=== PATIENT | female | born 1960 | race Caucasian/White ===

== ENCOUNTER 2017-11-14 13:48 | Outpatient (REF) | payer MEDICARE, MEDICAID, SELFPAY ==
[2017-11-14 13:25] LABS: ALT 29 U/L (12-78); AST 24 U/L (15-37); Albumin 3.7 g/dL (3.4-5.0); Alkaline Phosphatase 83 U/L (46-116); Anion Gap 8.2 mmol/L (3-11); BUN 20 mg/dL (7-18); Bilirubin, Total 1.2 mg/dL (0.2-1.0); CO2 30.8 mmol/L (21.0-32.0); CREATININE 1.13 mg/dL (0.55-1.02); Calcium 8.9 mg/dL (8.5-10.1); Chloride 105 mmol/L (98-107); Cholesterol 140 mg/dL (50-200); Estimated GFR 49.81 (mL/min/1.73m2); Glucose 84 mg/dL (70-100); HDL Cholesterol 52 mg/dL (40-60); LDL CHOLESTEROL 74 mg/dL (<100); Potassium 4.3 mmol/L (3.5-5.1); Sodium 144 mmol/L (136-145); TSH (W/Ref FT4) 2.28 uIU/mL (0.358-3.74); Total Protein 6.9 g/dL (6.4-8.2); Triglyceride 129 mg/dL (30-150)
== END 2017-11-14 14:08 ==
LOC: NCHCN 13:48
PROVIDERS: PCP Nurse Practitioner; Visit Provider Nurse Practitioner
DX: E03.9 Hypothyroidism, unspecified (principal); N28.9 Disorder of kidney and ureter, unspecified; I10 Essential (primary) hypertension; E78.5 Hyperlipidemia, unspecified
CPT/HCPCS: 80053; 80061; 83721; 84443

== ENCOUNTER 2018-08-17 02:00 | Outpatient (CLI) | payer MEDICARE, MEDICAID, SELFPAY ==
--- NOTE | 2018-08-17 08:23 | DI.RAD_ITS ---
SYMPTOM/DIAGNOSIS; RIGHT KNEE PAIN, M25.561 RIGHT KNEE: Four views. Comparison 03/02/10 There are again seen post surgical changes of a right total knee replacement. No evidence of hardware failure is seen. The bones are intact. There is a small joint effusion. Enthesophytes are seen at the patella. IMPRESSION: Stable right TKR
== END 2018-08-17 02:20 ==
PROVIDERS: PCP Nurse Practitioner; Visit Provider Nurse Practitioner
DX: M25.561 Pain in right knee (principal); Z96.651 Presence of right artificial knee joint
CPT/HCPCS: 73562

== ENCOUNTER 2018-09-07 01:29 | Outpatient (CLI) | payer MEDICARE, MEDICAID, SELFPAY ==
--- NOTE | 2018-09-07 13:16 | DI.MAMMO_ITS ---
SYMPTOM/DIAGNOSIS: SCREENING, Z12.39 MAMMOGRAMS: Mammograms were interpreted according to the usual protocol including computer analysis with CAD system, tomosynthesis and C view imaging. The breasts are of moderate density with fairly symmetrical distribution of fibroglandular tissue. No dominant mass or clumped microcalcification is identified in either breast. The current examination is compared with previous examinations including 12/2015 and there has been no gross interval change in appearance in comparison with the previous studies. CONCLUSION: No specific evidence of malignancy at this time. Routine screening examinations are suggested at yearly intervals due to the family history of breast carcinoma. Category 1. Breast density, category B. MQSA ASSESSMENT OF FINDINGS: Negative. Category 1. Patient will receive a letter notifying them of these results. BI-RADS category B. There are scattered areas of fibroglandular density.
== END 2018-09-07 01:49 ==
PROVIDERS: PCP Nurse Practitioner; Visit Provider Nurse Practitioner
DX: Z12.31 Encounter for screening mammogram for malignant neoplasm of breast (principal); Z80.3 Family history of malignant neoplasm of breast
CPT/HCPCS: 77063; 77067

== ENCOUNTER 2018-10-02 11:29 | Outpatient (CLI) | payer MEDICARE, MEDICAID, SELFPAY ==
--- NOTE | 2018-10-02 11:30 | NS.NUTBLAN_ITS ---
DESCRIPTION: Karen Fonseca presents for consult for her first nutrition visit in preparation for bariatric surgery. She describes times when she lost 100# in 3 months because she stopped eating but has always gained the weight back.Highest weight 412. Currently she eats a lot of salads; piece of cake 1 time a month. She has been freezing grapes as a treat. She has ham cheese sandwich for lunch and salad for second meal. She may snack on granola bar in evening. Karen states she rides stationary bike 20-30 minutes daily and uses her valdez 3-4 times a week although she has knee trouble from replacements. Weight today: 396 Height: 69 BMI: 58 NUTRITIONAL DIAGNOSIS: INTERVENTION: Discussed sustainability of her current food plan and she is confident she can continue this. Discussed approaches to achieve some of the requirements of foods for surgery. Discussed documenting her food. PLAN: Karen will maintain her current food and exercise plan. She will begin documenting her food on the food log. Will monitor weight and progress toward meeting requirements in 1 month
== END 2018-10-02 11:49 ==
PROVIDERS: PCP Nurse Practitioner; Visit Provider Dietitian, Registered
DX: E66.01 Morbid (severe) obesity due to excess calories (principal); Z68.43 Body mass index [BMI] 50.0-59.9, adult; Z01.818 Encounter for other preprocedural examination; Z71.3 Dietary counseling and surveillance
CPT/HCPCS: 97802

== ENCOUNTER 2018-10-23 15:15 | Outpatient (REF) | payer MEDICARE, MEDICAID, SELFPAY ==
--- NOTE | 2018-10-23 13:15 | PAPFT_PTH ---
PATIENT: Karen Fonseca LOC: [facility] U#:[id number] AGE/SX: 58/F ROOM: RE10/23/[address]: GILA Moya : 1960 BED: DIS: 10/23/2018 SPEC #: [id number] RECD: 10/23/18 17:47 STATUS: JOANIE REDebra #: [id number] CHELSY: 10/23/18 13:[address]: Josey Monroe DEPT: [facility] Cytology RECD BY: Clau Silva ENTERED: 10/23/18 17:48 SP TYPE: PAPFT OTHR DR: Osiris Mckeon Tissues: 1 - CX/ENDOCX FOR PAP SMEARS Procedures: PAP THIN PREP/UVM Screening HPV DNA PROBE Comments: [id number]
== END 2018-10-23 15:35 ==
LOC: LBN 15:15
PROVIDERS: PCP Nurse Practitioner; Visit Provider Nurse Practitioner Family
DX: Z12.4 Encounter for screening for malignant neoplasm of cervix (principal); Z11.51 Encounter for screening for human papillomavirus (HPV); R87.610 Atypical squamous cells of undetermined significance on cytologic smear of cervix (ASC-US)
CPT/HCPCS: 88142; 87624

== ENCOUNTER 2018-10-30 09:05 | Outpatient (CLI) | payer MEDICARE, MEDICAID, SELFPAY ==
--- NOTE | 2018-10-30 12:00 | NS.NUTBLAN_ITS ---
DESCRIPTION: Karen Fonseca presents for consult for her second nutrition visit in preparation for bariatric surgery. Karen continues to eat in a similar way as last month. She reports she barely eats, but continues to gain weight. She has oatmeal with maple syrup for breakfast, 1% milk; lunch is cottage cheese with fruit and snacks on frozen grapes; supper is sandwich and salad. SHe states she has tracked her calories in the past at around 1300kcal/day. She is currently taking a multivitamin. She drinks 1-2 carbonated beverages per week. Karen uses her exercise bike 20minutes daily and the gazelle 2-3 times per week. Karen reports she is going for her sleep study tonight. WEIGHT TODAY: 404.9 HEIGHT: 69 BMI: 59.8 INTERVENTION: Discussed causes of her recent weight gain and she states if she eats anything at all she gains weight. Discussed going off carbonated beverages and she states she will work on this. She does not feel there is anything she could do differently except not eat. PLAN: She will attempt to give up carbonated beverages She will continue her current food and physical activity plan
== END 2018-10-30 09:25 ==
PROVIDERS: PCP Nurse Practitioner; Visit Provider Dietitian, Registered
DX: E66.2 Morbid (severe) obesity with alveolar hypoventilation (principal); Z68.43 Body mass index [BMI] 50.0-59.9, adult; Z71.3 Dietary counseling and surveillance
CPT/HCPCS: 97802

== ENCOUNTER 2018-11-14 16:04 | Outpatient (REF) | payer MEDICARE, MEDICAID, SELFPAY ==
--- NOTE | 2018-11-14 15:40 | CER_PTH ---
PATIENT: Karen Fonseca LOC: [facility] U#:[id number] AGE/SX: 58/F ROOM: RE11/14/[address]: Caroline West MD : 1960 BED: DIS: 11/14/2018 SPEC #: [id number] RECD: 11/14/18 17:22 STATUS: JOANIE RE #: [id number] CHELSY: 11/14/18 15:[address]: Caroline West DEPT: Surgical Specimen RECD BY: Clau Silva ENTERED: 11/14/18 17:23 SP TYPE: CER OTHR DR: Osiris Mckeon Tissues: 1 - CERVICAL BIOPSY 2 - ENDOCERVICAL BX/CURRETTE Procedures: GROSS AND MICRO LEVEL 4 Comments: [id number]
== END 2018-11-14 16:24 ==
LOC: LBN 16:04
PROVIDERS: PCP Nurse Practitioner; Visit Provider Obstetrics & Gynecology
DX: N88.8 Other specified noninflammatory disorders of cervix uteri (principal); R87.610 Atypical squamous cells of undetermined significance on cytologic smear of cervix (ASC-US); R87.810 Cervical high risk human papillomavirus (HPV) DNA test positive
CPT/HCPCS: 88305

== ENCOUNTER 2018-11-15 19:47 | Outpatient (REF) | payer MEDICARE, MEDICAID, SELFPAY ==
[2018-11-15 19:09] LABS: Abs Immature Grans 0.02 k/cumm (0.0-0.09); Absolute Basophil Count 0.02 k/cumm (0.0-0.2); Absolute Eosinophil Count 0.17 k/cumm (0.0-0.7); Absolute Lymphocyte Count 1.87 k/cumm (1.2-3.4); Absolute Neutrophil Count 5.85 k/cumm (1.2-6.7); Basophils % 0.2; Eosinophils % 1.9; HCT 41.8 % (36.0-46.0); HGB 13.6 g/dL (12.0-15.5); Immature Grans % 0.2; Lymphocytes % 21.4; Mean Corp. HGB Concentration 32.5 g/dL (32.0-36.0); Mean Corpuscular Hemoglobin 30.2 pg (27.0-33.0); Mean Corpuscular Volume 92.9 fL (80-95); Mean Platelet Volume 10.6 fL (8.0-11.0); Monocytes % 9.2; Neutrophils % 67.1; Platelet Count 262 x1000/uL (130-400); RBC Distribution Width 14.3 % (11.7-14.6); White Blood Cell Count 8.73 k/cumm (4.4-10.8)
[2018-11-15 19:46] LABS: Hemoglobin A1C 5.7 % (4.5-6.2)
== END 2018-11-15 20:07 ==
LOC: NCHCN 19:47
PROVIDERS: PCP Nurse Practitioner; Visit Provider Nurse Practitioner
DX: R73.9 Hyperglycemia, unspecified (principal); E66.9 Obesity, unspecified
CPT/HCPCS: 83036; 85025

== ENCOUNTER 2018-11-27 13:54 | Outpatient (CLI) | payer MEDICARE, MEDICAID, SELFPAY ==
--- NOTE | 2018-11-27 13:30 | NS.NUTBLAN_ITS ---
DESCRIPTION: Karen Fonseca presents for nutrition consult for her 3rd bariatric surgery visit. Weight: 393.4 Height: 69 BMI: 58.1 Karen reports changes in her food to add hot pepper jelly on crackers (4 jars in last week); chips and ham and cheese or vegetable sandwiches at times after having primarily eating vegetables and protein in an attempt to lose weight, and this has surprisingly resulted in weight loss. SHe has also added 5 maple candies per day. She has 1 soda a week; no coffee. She is taking multivitamins. Karen continues to use her bike 20 minutes daily. Karen completed her sleep study with self-reported 'severe' sleep apnea however she feels she slept poorly trying the mask for the first time last night. INTERVENTION: Discussed unexpected weight change from adding sugar and grains to her current meal plan. Discussed possible need for some carbohydrate for optimal metabolic processes. Reviewed portions and frequent smaller meals; beverages between meals. She is encouraged to continue using c-pap for time being. She will discuss Medicare requirements for bariatric surgery with her PCP . PLAN: Consider cutting sugar and replace with a complex whole grain carbohydrate for a few days Continue current physical activity
== END 2018-11-27 14:14 ==
PROVIDERS: PCP Nurse Practitioner; Visit Provider Dietitian, Registered
DX: E66.9 Obesity, unspecified (principal); Z71.3 Dietary counseling and surveillance

== ENCOUNTER 2019-02-28 00:27 | Outpatient (CLI) | payer MEDICARE, MEDICAID, SELFPAY ==
--- NOTE | 2019-02-28 08:53 | DI.US_ITS ---
EXAM: US ABDOMEN CLINICAL HISTORY: ELEVATED BILIRUBIN, S/P CHOLECYSTECTOMY, ASSESS TECHNIQUE: Ultrasound performed using standard protocol. COMPARISON: THYROID ULTRASOUND from 04/29/2015 FINDINGS: Hepatic parenchyma is echogenic with decrease through transmission consistent with hepatic steatosis. Large portions of the liver are nonvisualized. Gallbladder has been surgically removed. No biliar y dilatation seen. Pancreas poorly visualized. Limited visualization of the kidneys with no gross h ydronephrosis. Spleen grossly unremarkable. Abdominal aorta and IVC are of normal diameter. IMPRESSION: Technically limited study. No biliary dilatation. Hepatic steatosis noted. The patient is status post cholecystectomy.
[2019-02-28 09:32] LABS: ALT 75 U/L (14-59); AST 53 U/L (15-37); Albumin 3.8 g/dL (3.4-5.0); Alkaline Phosphatase 59 U/L (46-116); Bilirubin, Direct 0.37 mg/dL (0.00-0.20); Bilirubin, Total 2.2 mg/dL (0.2-1.0); Total Protein 6.9 g/dL (6.4-8.2)
== END 2019-02-28 00:47 ==
PROVIDERS: PCP Nurse Practitioner
DX: E80.6 Other disorders of bilirubin metabolism (principal); K76.0 Fatty (change of) liver, not elsewhere classified; Z90.49 Acquired absence of other specified parts of digestive tract
CPT/HCPCS: 36415; 80076; 76700; 85610

== ENCOUNTER 2019-05-27 07:12 | Outpatient (CLI) | payer MEDICARE, MEDICAID, SELFPAY ==
[2019-05-27 08:50] LABS: TSH 0.21 uIU/mL (0.36-3.74)
== END 2019-05-27 07:32 ==
PROVIDERS: PCP Nurse Practitioner; Visit Provider Nurse Practitioner Family
DX: E03.9 Hypothyroidism, unspecified (principal); Z98.84 Bariatric surgery status
CPT/HCPCS: 36415; 84443

== ENCOUNTER 2019-07-17 01:58 | Outpatient (CLI) | payer MEDICARE, MEDICAID, SELFPAY ==
[2019-07-17 08:27] LABS: Prothrombin Time 9.9 sec (9.3-11.0)
[2019-07-17 08:53] LABS: ALT 44 U/L (14-59); AST 29 U/L (15-37); Alkaline Phosphatase 82 U/L (46-116); Bilirubin, Direct 0.37 mg/dL (0.00-0.20); Bilirubin, Total 1.8 mg/dL (0.2-1.0); TSH (W/Ref FT4) 0.39 uIU/mL (0.36-3.74)
== END 2019-07-17 02:18 ==
PROVIDERS: PCP Nurse Practitioner; Visit Provider Surgery
DX: E80.6 Other disorders of bilirubin metabolism (principal); K76.89 Other specified diseases of liver; E03.9 Hypothyroidism, unspecified
CPT/HCPCS: 36415; 80076; 84443; 85610

== ENCOUNTER 2019-09-02 01:16 | Outpatient (CLI) | payer MEDICARE, MEDICAID, SELFPAY ==
[2019-09-02 13:38] LABS: TSH (W/Ref FT4) 0.25 uIU/mL (0.36-3.74)
== END 2019-09-02 01:36 ==
PROVIDERS: PCP Nurse Practitioner; Visit Provider Nurse Practitioner
DX: E03.9 Hypothyroidism, unspecified (principal); M10.9 Gout, unspecified
CPT/HCPCS: 36415; 80053; 80061; 82306; 85027; 82607; 82728; 82746; 83540; 84134; 84425; 84439; 84443; 84550

== ENCOUNTER → 2019-09-09 09:16 | Outpatient (BNVA) | payer MEDICARE, MEDICAID, SELFPAY | PROVIDERS: PCP Nurse Practitioner; Referring Provider Nurse Practitioner; Visit Provider Surgery | DX: Z12.11 Encounter for screening for malignant neoplasm of colon (principal); Z86.010 Personal history of colon polyps ==

== ENCOUNTER 2019-09-23 08:41 | Outpatient (CLI) | payer MEDICARE, MEDICAID, SELFPAY ==
[2019-09-25 14:53] LABS: COVID-19 RT-PCR Result NEGATIVE (Negative)
== END 2019-09-23 09:01 ==
PROVIDERS: PCP Nurse Practitioner; Visit Provider Surgery
DX: Z01.818 Encounter for other preprocedural examination (principal); T84.84XA Pain due to internal orthopedic prosthetic devices, implants and grafts, initial encounter; M25.561 Pain in right knee; Z96.651 Presence of right artificial knee joint; I10 Essential (primary) hypertension
CPT/HCPCS: 99214; U0003

== ENCOUNTER 2019-09-23 11:43 | Outpatient (CLI) | payer MEDICARE, MEDICAID, SELFPAY ==
--- NOTE | 2019-09-23 11:30 | DI.RAD_ITS ---
EXAM: XR KNEE RT 4V+ CLINICAL HISTORY: HISTORY RIGHT TKA. TECHNIQUE: 2D digital imaging was performed. COMPARISON: CR XR knee RT 3V AP,lat,juanita from 08/17/2018 FINDINGS: There are stable postsurgical changes of a right total knee arthroplasty. Bones are intact and carina lly mineralized. Enthesophytes are seen at the superior patella. The soft tissues are unremarkable. IMPRESSION: Stable right total knee arthroplasty. DATA REPOSITORY: RADIATION DOSE DELIVERED:
== END 2019-09-23 12:03 ==
PROVIDERS: PCP Nurse Practitioner; Referring Provider Nurse Practitioner; Visit Provider Student in an Organized Health Care Education/Training Program
DX: Z96.651 Presence of right artificial knee joint (principal); Z47.1 Aftercare following joint replacement surgery; T84.84XA Pain due to internal orthopedic prosthetic devices, implants and grafts, initial encounter; M25.561 Pain in right knee; I10 Essential (primary) hypertension; Z01.818 Encounter for other preprocedural examination
CPT/HCPCS: 99214; U0003; 73564

== ENCOUNTER 2019-09-25 06:10 | Day surgery (SDC) | payer MEDICARE, MEDICAID, SELFPAY ==
[2019-09-25 06:29] VITALS: BP 136/90; PULSE 67; RESP 17; TEMP 36.1; O2SAT 98
--- NOTE | 2019-09-25 06:58 | W.PM.DSUDISC ---
Discharge Plan Disposition Patient Disposition: HOME Condition: Good Discharge Details Reason For Visit: Colonoscopy Attending Provider: Taryn Zelaya Primary Care Provider: Osiris Mckeon Home Meds and New Rx's Prescriptions: Continued oxycodone-acetaminophen [Percocet] 5-325 mg tablet 1 tab PO BID PRNRF: 0 colchicine 0.6 mg capsule 0.6 mg PO TID RF: 0 levothyroxine 150 mcg capsule 150 mcg PO DAILY RF: 0 omeprazole 40 mg capsule,delayed release(DR/EC) 40 mg PO DAILY RF: 0 jzzhyqhtx-pqogwmx-tihci acid 400-200-1 mg tablet 1 tab PO DAILY RF: 0 turmeric root extract 500 mg capsule 500 mg PO DAILY RF: 0 multivitamin 1 EACH capsule 1 cap PO DAILY RF: 0 cholecalciferol (vitamin D3) [Vitamin D3] 1,000 UNIT capsule 1 cap PO DAILY RF: 0 magnesium oxide 400 MG capsule 800 mg PO DAILY RF: 0 Discharge Instructions Additional Instructions: Findings: Three small polyps were removed. My office will call with biopsy results. Diverticulosis was present. Make sure to take in 30 grams of fiber daily. Follow up: Plan for a colonoscopy in 5 years. Please call if you develop: fevers >101.5 Nausea or Vomiting Abdominal pain that is not transient DAY SURGERY UNIT POST COLONOSCOPY INSTRUCTIONS 1. Because there will be medication in your system for the next 24 hours, you may feel a little sleepy. Your coordination will be affected. Therefore: a. Do not drive or operate dangerous equipment for 24 hours. b. Do not drink alcohol beverages for 24 hours (not even beer). c. Plan to go home and rest for the day. 2. Generally there are no restrictions on your activity after a day or so has gone by, but you may feel a bit fatigued for a few days. 3 After you arrive home you may have a light meal and return to a normal diet as you can tolerate it without feeling sick to your stomach. 4. After surgery, you may feel pain or discomfort. This should be only transient, but if it persists please contact your doctor. 5. If there are any questions regarding the findings of your procedure, please feel free to contact your doctor. 6. If you are unable to contact your doctor with a problem, contact the hospital at [phone]. 7. Continue all your regular medications unless directed otherwise. I understand the above instructions and have no questions. Signature of Patient or Responsible Adult Escort Date/Time Name of Responsible Adult Escort Signature of Nurse Date/Time Activity:: Activity as Tolerated Diet:: As Tolerated Discharge Orders Discharge Orders: Discharge Order (Routine); Ordered 09/25/19 Ordered By: Taryn Zelaya DS: Diagnosis Discharge Diagnosis (1) Colon polyps: Status: Acute (2) Diverticulosis: Status: Acute
[2019-09-25] MEDS: Lactated Ringers 1,000 ML 80 ML IV (07:02)
--- NOTE | 2019-09-25 07:37 | BOWEL_PTH ---
PATIENT: Karen Fonseca LOC: [facility] U#:[id number] AGE/SX: 59/F ROOM: RE09/25/[address]: Taryn Zelaya MD : 1960 BED: DIS: 09/25/2019 SPEC #: [id number] RECD: 09/25/19 12:05 STATUS: JOANIE RE #: [id number] CHELSY: 09/25/19 07:[address]: Taryn Zelaya DEPT: Surgical Specimen RECD BY: Clau Silva ENTERED: 09/25/19 12:07 SP TYPE: Bowel OTHR DR: Osiris Mckeon Tissues: 1 - BIOPSY BOWEL 2 - BIOPSY BOWEL Procedures: GROSS AND MICRO LEVEL 4 Comments: [id number]
--- NOTE | 2019-09-25 08:14 | W.COLOREPORT ---
Date of service: 09/25/19 Time of Service: 08:14 Colonoscopy Report Date of procedure: 09/25/19 Pre-op diagnosis general: History of polyps Post-op diagnosis procedure note: other (Colon polyps, diverticulosis) Procedure: Colonoscopy with cold forceps polypectomy Surgeon: Taryn Zelaya Anesthesia proc note operative: MAC Indications: This patient presents for routine colonoscopy. She had polyps in 2012. No symptoms or FH Procedure Description: The patient was placed in the left Oneil position. Propofol was titrated to sedation. Digital rectal examination revealed no abnormalities. The scope was advanced to the cecum without difficulty. The ileocecal valve and appendiceal orifice were clearly identified. The prep was good. The scope was slowly withdrawn with two diminuitive polyps in the ascending colon removed with the cold forceps and sent to pathology in the same container. A diminuitive polyp was remove from the transverse colon. The descending, sigmoid colon and rectum were normal including on retroflexed view with the exception of some moderate sigmoid diverticulosis. The patient tolerated the procedure well and was stable to recovery. Plan for colonoscopy in 5 years or sooner if symptoms indicate.
[2019-09-25 08:30] VITALS: BP 120/70; PULSE 53; RESP 16; TEMP 35.6; O2SAT 100
== END 2019-09-25 09:00 | disposition home or self-care (01) ==
PROVIDERS: PCP Nurse Practitioner; Visit Provider Surgery
PROC: 0DJD8ZZ Inspection of Lower Intestinal Tract, Via Natural or Artificial Opening Endoscopic (ICD-10-PCS; CPT 45378; principal; 2019-09-25 07:30)
DX: Z12.11 Encounter for screening for malignant neoplasm of colon (principal); Z86.010 Personal history of colon polyps; D12.3 Benign neoplasm of transverse colon; D12.2 Benign neoplasm of ascending colon; K57.30 Diverticulosis of large intestine without perforation or abscess without bleeding
CPT/HCPCS: 45380; 88305

== ENCOUNTER 2019-09-26 01:20 | Outpatient (CLI) | payer MEDICARE, MEDICAID, SELFPAY ==
--- NOTE | 2019-09-26 06:30 | DI.NM_ITS ---
EXAM: NM BONE SCAN 3 PHASE CLINICAL HISTORY: Painful R TKA - medial tibia,t84.84xa,z96.651,. EXAMINATION: Three phase bone scan was performed with 3 phase imaging the knees and delayed whole luis manuel dy imaging following injection of 26 millicuries of technetium 99 labeled diphosphonate. There are b ilateral knee joint replacements in position. Flow images, immediate images, and delayed images are unremarkable with only minimally increased uptake typical for post TKR appearance associated with all joint components. Whole body imaging is unremarkable except for multiple areas of increased uptake in the feet, right g reater than left, consistent with typical pattern of degenerative change. FINDINGS: Bilateral total knee replacements, no focal increased uptake to suggest loosening or infection. IMPRESSION:
== END 2019-09-26 01:40 ==
PROVIDERS: PCP Nurse Practitioner; Visit Provider Student in an Organized Health Care Education/Training Program
DX: T84.84XA Pain due to internal orthopedic prosthetic devices, implants and grafts, initial encounter (principal); Z96.653 Presence of artificial knee joint, bilateral; M25.561 Pain in right knee
CPT/HCPCS: 78315

== ENCOUNTER 2019-09-26 02:45 | Outpatient (CLI) | payer MEDICARE, MEDICAID, SELFPAY ==
[2019-09-26 12:49] LABS: HCT 38.3 % (36.0-46.0); HGB 12.8 g/dL (12.0-15.5); Mean Corp. HGB Concentration 33.4 g/dL (32.0-36.0); Mean Corpuscular Hemoglobin 30.2 pg (27.0-33.0); Mean Corpuscular Volume 90.3 fL (80-95); Mean Platelet Volume 10.2 fL (8.0-11.0); Platelet Count 205 x1000/uL (130-400); RBC 4.24 m/cumm (4.00-5.20); White Blood Cell Count 6.36 k/cumm (4.4-10.8)
[2019-09-26 13:26] LABS: Iron 47 ug/dL (50-170)
[2019-09-26 13:30] LABS: ESR 33 mm/hr (0-30)
[2019-09-26 13:31] LABS: C-Reactive Protein 0.67 mg/dL (0.0-0.3)
[2019-09-26 13:54] LABS: ALT 28 U/L (14-59); AST 19 U/L (15-37); Albumin 3.9 g/dL (3.4-5.0); Alkaline Phosphatase 86 U/L (46-116); Anion Gap 9.3 mmol/L (3-11); BUN 12 mg/dL (7-18); Bilirubin, Total 2.4 mg/dL (0.2-1.0); CO2 27.7 mmol/L (21.0-32.0); CREATININE 1.01 mg/dL (0.55-1.02); Calcium 9.2 mg/dL (8.5-10.1); Calculated LDL 62 mg/dL (<100); Chloride 106 mmol/L (98-107); Cholesterol 131 mg/dL (<200); Ferritin 99 ng/mL (8-252); Glucose 89 mg/dL (74-106); HDL Cholesterol 47 mg/dL (40-60); Potassium 3.7 mmol/L (3.5-5.1); Sodium 143 mmol/L (136-145); Total Protein 6.8 g/dL (6.4-8.2); Triglyceride 110 mg/dL (<150); Vitamin B12 710 pg/mL (193-986)
[2019-09-26 13:58] LABS: Folate > 20.0 ng/mL (8.6-20.0)
[2019-09-26 14:06] LABS: Vitamin D 25 Total 38.5 ng/ml (30-100)
[2019-09-26 14:08] LABS: Uric Acid 7.3 mg/dL (2.6-6.0)
[2019-09-27 10:27] LABS: Prealbumin 22 mg/dL (20-40)
[2019-10-01 14:03] LABS: Thiamine (Vitamin B1), WB 181 nmol/L (70-180)
== END 2019-09-26 03:05 ==
PROVIDERS: PCP Nurse Practitioner; Visit Provider Student in an Organized Health Care Education/Training Program
DX: E83.10 Disorder of iron metabolism, unspecified (principal); I10 Essential (primary) hypertension; E55.9 Vitamin D deficiency, unspecified; K91.2 Postsurgical malabsorption, not elsewhere classified; E03.9 Hypothyroidism, unspecified; R94.5 Abnormal results of liver function studies; E78.5 Hyperlipidemia, unspecified; M10.9 Gout, unspecified; M25.561 Pain in right knee; T84.84XA Pain due to internal orthopedic prosthetic devices, implants and grafts, initial encounter; Z96.651 Presence of right artificial knee joint
CPT/HCPCS: 36415; 80053; 80061; 82306; 85027; 85652; 78315; 82607; 82728; 82746; 83540; 84134; 84425; 84550; 86140

== ENCOUNTER → 2019-10-21 08:42 | Outpatient (BNVA) | payer MEDICARE, MEDICAID, SELFPAY | PROVIDERS: PCP Nurse Practitioner; Referring Provider Nurse Practitioner; Visit Provider Student in an Organized Health Care Education/Training Program | DX: M25.561 Pain in right knee; T84.84XA Pain due to internal orthopedic prosthetic devices, implants and grafts, initial encounter; Z96.651 Presence of right artificial knee joint | CPT/HCPCS: 99213 ==

== ENCOUNTER 2019-12-02 10:00 | Outpatient (REF) | payer MEDICARE, MEDICAID, SELFPAY ==
[2019-12-02 20:16] LABS: FREE T4 0.95 ng/dL (0.76-1.46)
== END 2019-12-02 10:20 ==
LOC: NCHCN 10:00
PROVIDERS: PCP Nurse Practitioner; Visit Provider Nurse Practitioner
DX: E03.9 Hypothyroidism, unspecified (principal)
CPT/HCPCS: 84439; 84443

== ENCOUNTER 2020-06-08 15:54 | Outpatient (REF) | payer MEDICARE, MEDICAID, SELFPAY ==
[2020-06-08 16:04] LABS: TSH (W/Ref FT4) 9.26 uIU/mL (0.36-3.74)
[2020-06-08 16:39] LABS: FREE T4 0.83 ng/dL (0.76-1.46)
== END 2020-06-08 15:55 | disposition home or self-care (01) ==
LOC: NCHCN 15:54
PROVIDERS: PCP Nurse Practitioner; Visit Provider Nurse Practitioner
DX: E03.9 Hypothyroidism, unspecified (principal)
CPT/HCPCS: 84439; 84443

== ENCOUNTER 2020-06-16 01:07 | Outpatient (CLI) | payer MEDICARE, MEDICAID, SELFPAY ==
--- NOTE | 2020-06-16 | DI.MAMMO_ITS ---
EXAM: MAMMO SCREENING CLINICAL HISTORY: SCREENING, Z12.39 TECHNIQUE: Mammograms were interpreted according to the usual protocol including computer analysis w [employer] CAD system, tomosynthesis and C-view imaging. COMPARISON: FINDINGS: The breasts are of moderate density with fairly symmetrical distribution of fibroglandular tissue. N o dominant mass or clumped microcalcification is identified in either breast. Current examination is compared with previous examinations including August 2018 and there is increased prominence of focal i rregular area of increased radiodensity projected in the central superior portion of left breast on M LO view. Additional mammographic views of this area are requested to include an MLO spot compression view of the left breast. No other significant change from prior studies. IMPRESSION: Additional mammographic views of left breast are requested as described above. Breast ultrasound may be indicated as well depending on the results of the additional mammographic views. BI-RADS Category 0 - Assessment Incomplete: Need additional imaging evaluation Breast Density - Category B - Scattered areas of fibroglandular density
== END 2020-06-16 01:27 ==
PROVIDERS: PCP Nurse Practitioner; Visit Provider Nurse Practitioner
DX: Z12.31 Encounter for screening mammogram for malignant neoplasm of breast (principal); R92.8 Other abnormal and inconclusive findings on diagnostic imaging of breast
CPT/HCPCS: 77063; 77067

== ENCOUNTER 2020-06-16 11:05 | Outpatient (REF) | payer MEDICARE, MEDICAID, SELFPAY ==
--- NOTE | 2020-06-16 10:45 | PAPFT_PTH ---
PATIENT: Karen Fonseca LOC: [facility] U#:[id number] AGE/SX: 59/F ROOM: RE06/16/[address]: GILA Moya : 1960 BED: DIS: 06/16/2020 SPEC #: [id number] RECD: 06/16/20 12:53 STATUS: GEMMAAra REQ #: [id number] CHELSY: 06/16/20 10:[address]: Josey Monroe DEPT: REPLACED BY [facility] Cytology RECD BY: Clau Silva ENTERED: 06/16/20 12:54 SP TYPE: PAPFT OTHR DR: Osiris Mckeon Tissues: 1 - CX/ENDOCX FOR PAP SMEARS Procedures: PAP THIN PREP/UVM Screening HPV DNA PROBE Comments: [id number]
== END 2020-06-16 11:06 | disposition home or self-care (01) ==
LOC: LBN 11:05
PROVIDERS: PCP Nurse Practitioner; Visit Provider Nurse Practitioner Family
DX: Z12.4 Encounter for screening for malignant neoplasm of cervix (principal); Z87.42 Personal history of other diseases of the female genital tract; Z11.51 Encounter for screening for human papillomavirus (HPV); R87.810 Cervical high risk human papillomavirus (HPV) DNA test positive
CPT/HCPCS: 88142; 87624

== ENCOUNTER 2020-06-22 02:01 | Outpatient (CLI) | payer MEDICARE, MEDICAID, SELFPAY ==
--- NOTE | 2020-06-22 | DI.MAMMO_ITS ---
EXAM: MG MAMMO SCREEN CALL BACK UNI-LEFT CLINICAL HISTORY: F/U MAMMO, INCREASED RADIODENSITY. TECHNIQUE: Unilateral spot mammographic images were obtained with 3D tomosynthesis and utilizing Zazzy puter aided detection (CAD). . Left breast Ultrasound was also performed. COMPARISON: Prior mammograms were reviewed. This additional imaging was performed due to findings described on the recent screening mammogram of June 16, 2020. FINDINGS: Additional mammographic views performed today render this area less concerning. Ultrasound performed today reveals no significant focal findings in this region. That separate repor t. IMPRESSION: No radiographic evidence of malignancy in the left breast.. Appropriate follow-up is to keep this patient yearly mammogram schedule, with earlier imaging if a se lf detected breast changes noted.. BI-RADS Category 2 - Benign Findings Breast Density - Category B - Scattered areas of fibroglandular density Breast density Category C or D implies that the patient has dense breast tissue. Dense breast tissue can make it harder to find cancer on a mammogram. Dense breast tissue is also associated with an incr eased risk of breast cancer. This information about the result of the mammogram report was provided to the patient to raise their awareness. Use this report when you speak with the patient about their risks for breast cancer, which includes their family history. At that time, you may recommend additional screening tests (Ultrasoun d or MRI) as these tests may add significant information. A negative radiographic report should not delay biopsy if a dominant or clinically suspicious mass is present. Up to ten percent of cancers are not identified on mammography. A negative report may reinforce clinical impression. Adenosis and dense breasts may obscure an underlying neoplasm. False positive reports average 6 to 10%. Patient will receive a letter notifying them of these results.
== END 2020-06-22 02:21 ==
PROVIDERS: PCP Nurse Practitioner; Visit Provider Nurse Practitioner
DX: Z12.31 Encounter for screening mammogram for malignant neoplasm of breast (principal); R92.8 Other abnormal and inconclusive findings on diagnostic imaging of breast; N64.59 Other signs and symptoms in breast
CPT/HCPCS: 76642; 77063; 77067

== ENCOUNTER 2020-07-01 16:22 | Outpatient (REF) | payer MEDICARE, MEDICAID, SELFPAY ==
[2020-07-03 11:25] LABS: COVID-19 RT-PCR UVMMC Result Positive (Negative)
== END 2020-07-01 16:23 | disposition home or self-care (01) ==
LOC: NCHCN 16:22
PROVIDERS: PCP Nurse Practitioner; Visit Provider Physician Assistant Medical
DX: Z20.822 Contact with and (suspected) exposure to COVID-19 (principal); J06.9 Acute upper respiratory infection, unspecified
CPT/HCPCS: U0003; U0005

== ENCOUNTER 2020-12-07 15:23 | Outpatient (REF) | payer MEDICARE, MEDICAID, SELFPAY ==
[2020-12-07 16:09] LABS: HCT 39.5 % (36.0-46.0); HGB 12.9 g/dL (11.2-15.7); MCH 29.6 pg (27.0-33.0); MCHC 32.7 % (32.0-36.0); MCV 90.6 fL (80-95); MPV 10.9 fL (8.0-11.0); Platelet Count 228 10^3/uL (130-400); RBC 4.36 10^6/uL (3.93-5.22); RDW 12.7 % (11.7-14.6); RDW-SD 41.5 fL; WBC 7.21 10^3/uL (4.4-10.8)
[2020-12-07 16:40] LABS: Iron 70 ug/dL (50-170); Total Iron Binding Capacity 361 ug/dL (250-450); Transferrin Sat 19 % (15-50)
[2020-12-07 17:05] LABS: Vitamin D 25 Total 33.7 ng/mL (30-100)
[2020-12-07 17:21] LABS: ALT 37 U/L (14-59); AST 24 U/L (15-37); Albumin 3.9 g/dL (3.4-5.0); Alkaline Phosphatase 100 U/L (46-116); Anion Gap 9.8 mmol/L (3-11); BUN 16 mg/dL (7-18); Bilirubin, Total 1.3 mg/dL (0.2-1.0); CO2 28.2 mmol/L (21.0-32.0); CREATININE 0.8 mg/dL (0.55-1.02); Calcium 8.9 mg/dL (8.5-10.1); Chloride 107 mmol/L (98-107); Ferritin 82 ng/mL (8-252); Glucose 86 mg/dL (74-106); Potassium 4.4 mmol/L (3.5-5.1); Sodium 145 mmol/L (136-145); TSH (W/Ref FT4) 0.41 uIU/mL (0.36-3.74); Total Protein 7.1 g/dL (6.4-8.2); Vitamin B12 681 pg/mL (193-986)
[2020-12-07 17:40] LABS: Folate > 20.0 ng/mL (8.6-20.0)
[2020-12-08 09:57] LABS: Parathyroid Hormone,Intact 125 pg/mL (19-88)
[2020-12-10 10:10] LABS: Thiamine (Vitamin B1), WB 226 nmol/L (70-180)
== END 2020-12-07 15:24 | disposition home or self-care (01) ==
LOC: NCHCN 15:23
PROVIDERS: PCP Nurse Practitioner; Visit Provider Nurse Practitioner
DX: Z98.84 Bariatric surgery status (principal); E78.5 Hyperlipidemia, unspecified; G47.33 Obstructive sleep apnea (adult) (pediatric); I10 Essential (primary) hypertension; E03.9 Hypothyroidism, unspecified
CPT/HCPCS: 80053; 82306; 85027; 82607; 82728; 82746; 83540; 83550; 83970; 84425; 84443

== ENCOUNTER 2021-06-08 11:49 | Outpatient (REF) | payer MEDICARE, MEDICAID, SELFPAY ==
--- NOTE | 2021-06-08 11:15 | PAPFT_PTH ---
PATIENT: Karen Fonseca LOC: [facility] U#:[id number] AGE/SX: 60/F ROOM: RE06/08/[address]: GILA Moya : 1960 BED: DIS: 06/08/2021 SPEC #: [id number] RECD: 06/08/21 12:48 STATUS: JOANIE REDebra #: [id number] CHELSY: 06/08/21 11:[address]: Josey Monroe DEPT: [facility] Cytology RECD BY: Clau Silva ENTERED: 06/08/21 12:49 SP TYPE: PAPFT OTHR DR: Osiris Mckeon Tissues: 1 - CX/ENDOCX FOR PAP SMEARS Procedures: PAP THIN PREP/UVM Screening HPV DNA PROBE Comments: [id number]
== END 2021-06-08 11:50 | disposition home or self-care (01) ==
LOC: LBN 11:49
PROVIDERS: PCP Nurse Practitioner; Visit Provider Nurse Practitioner Family
DX: Z12.4 Encounter for screening for malignant neoplasm of cervix (principal); Z11.51 Encounter for screening for human papillomavirus (HPV); R87.810 Cervical high risk human papillomavirus (HPV) DNA test positive; Z01.419 Encounter for gynecological examination (general) (routine) without abnormal findings
CPT/HCPCS: 88142; 87624

== ENCOUNTER 2021-06-08 17:13 | Outpatient (REF) | payer MEDICARE, MEDICAID, SELFPAY ==
[2021-06-08 16:51] LABS: HCT 40.8 % (36.0-46.0); HGB 13.2 g/dL (11.2-15.7); MCHC 32.4 % (32.0-36.0); MCV 89.7 fL (80-95); MPV 11.1 fL (8.0-11.0); Platelet Count 229 10^3/uL (130-400); RBC 4.55 10^6/uL (3.93-5.22); RDW 12.9 % (11.7-14.6); RDW-SD 41.9 fL; WBC 6.75 10^3/uL (4.4-10.8)
[2021-06-08 18:15] LABS: FREE T4 1.05 ng/dL (0.76-1.46)
== END 2021-06-08 17:14 | disposition home or self-care (01) ==
LOC: NCHCN 17:13
PROVIDERS: PCP Nurse Practitioner; Visit Provider Nurse Practitioner Family
DX: I10 Essential (primary) hypertension (principal)
CPT/HCPCS: 85027; 84439; 84443

== ENCOUNTER 2021-06-18 00:24 | Outpatient (CLI) | payer MEDICARE, MEDICAID, SELFPAY ==
--- NOTE | 2021-06-18 | DI.DEXA_ITS ---
Exam(s) XR DEXA BONE DENSITY W/WO ABDIRIZAK EXAM: XR DEXA BONE DENSITY W/WO ABDIRIZAK CLINICAL HISTORY: HX OF GASTRIC BYPASS 2020, Z98.84, HX NORMAL MENOPAUSE, Z78.0 TECHNIQUE: Routine DEXA evaluation of the lumbar spine, hip, or forearm. COMPARISON: No exams were available for comparison FINDINGS: Performed on a Hologic unit. Lateral image: No compression fracture evident. Lumbar Spine total T-score: 3.3 Hip total T-score:2.1 Independent reading at the level of the femoral neck yields at T-score of 0.3. Forearm total T-score: 1.2 IMPRESSION: Bone mineral density measures in the normal range. Fracture risk is low. Note: Any spine fracture indicates 5x risk for subsequent spine fracture and 2x risk for subsequent h ip fracture. World Health Organization criteria for BMD interpretation classify patients: Normal...... T- Score at or above -1.0 Osteopenic... T- Score between -1.0 and -2.5 Osteoporosis... T-Score at or below -2.5
== END 2021-06-18 00:44 ==
PROVIDERS: PCP Nurse Practitioner; Visit Provider Nurse Practitioner Family
DX: Z13.820 Encounter for screening for osteoporosis; Z78.0 Asymptomatic menopausal state; Z98.84 Bariatric surgery status
CPT/HCPCS: 77080

== ENCOUNTER 2021-07-09 10:41 | Outpatient (REF) | payer MEDICARE, MEDICAID, SELFPAY ==
--- NOTE | 2021-07-09 10:00 | ENDO_PTH ---
PATIENT: Karen Fonseca LOC: [facility] U#:[id number] AGE/SX: 60/F ROOM: RE07/09/[address]: Shila Henderson DO : 1960 BED: DIS: 07/09/2021 SPEC #: [id number] RECD: 07/09/21 12:44 STATUS: JOANIE REQ #: [id number] CHELSY: 07/09/21 10:[address]: Shila Henderson DEPT: Surgical Specimen RECD BY: Clau Silva ENTERED: 07/09/21 12:45 SP TYPE: Endo OTHR DR: Osiris Mckeon Tissues: 1 - ENDOCERVICAL BX/CURRETTE Procedures: GROSS AND MICRO LEVEL 4 Comments: [id number]
== END 2021-07-09 10:42 | disposition home or self-care (01) ==
LOC: LBN 10:41
PROVIDERS: PCP Nurse Practitioner; Visit Provider Obstetrics & Gynecology
DX: N88.8 Other specified noninflammatory disorders of cervix uteri (principal)
CPT/HCPCS: 88305

== ENCOUNTER 2021-12-07 13:30 | Outpatient (REF) | payer MEDICARE, MEDICAID, SELFPAY ==
[2021-12-07 15:44] LABS: Abs Immature Grans 0.03 10^3/uL (0.0-0.06); Absolute Basophil Count 0.04 10^3/uL (0.0-0.2); Absolute Eosinophil Count 0.08 10^3/uL (0.0-0.7); Absolute Lymphocyte Count 1.37 10^3/uL (1.2-3.4); Absolute Monocyte Count 0.44 10^3/uL (0.1-0.8); Absolute Neutrophil Count 5.02 10^3/uL (1.2-6.7); Basophils % 0.6; Eosinophils % 1.1; HCT 39.4 % (36.0-46.0); Immature Grans % 0.4; Lymphocytes % 19.6; MCH 29.4 pg (27.0-33.0); MCV 89 fL (80-95); MPV 11.1 fL (8.0-11.0); Monocytes % 6.3; Platelet Count 231 10^3/uL (130-400); RBC 4.42 10^6/uL (3.93-5.22); RDW 12.4 % (11.7-14.6); RDW-SD 40.3 fL; WBC 6.98 10^3/uL (4.4-10.8)
[2021-12-07 16:16] LABS: Iron 98 ug/dL (50-170); Total Iron Binding Capacity 357 ug/dL (250-450); Transferrin Sat 27 % (15-50)
[2021-12-07 16:40] LABS: ALT 27 U/L (14-59); AST 20 U/L (15-37); Albumin 3.8 g/dL (3.4-5.0); Alkaline Phosphatase 104 U/L (46-116); Anion Gap 9.5 mmol/L (3-11); BUN 20 mg/dL (7-18); Bilirubin, Total 1.2 mg/dL (0.2-1.0); CO2 27.5 mmol/L (21.0-32.0); CREATININE 0.9 mg/dL (0.55-1.02); Calcium 9.2 mg/dL (8.5-10.1); Calculated LDL 58 mg/dL (<100); Chloride 107 mmol/L (98-107); Cholesterol 141 mg/dL (<200); Estimated GFR 73.19 (mL/min/1.73m2); Ferritin 86 ng/mL (8-252); Glucose 90 mg/dL (74-106); HDL Cholesterol 58 mg/dL (40-60); Potassium 4.3 mmol/L (3.5-5.1); Sodium 144 mmol/L (136-145); TSH (W/Ref FT4) 1.46 uIU/mL (0.36-3.74); Triglyceride 129 mg/dL (<150); Vitamin B12 727 pg/mL (193-986)
[2021-12-07 16:58] LABS: Folate > 20.0 ng/mL (8.6-20.0)
[2021-12-07 17:09] LABS: Uric Acid 7.2 mg/dL (2.6-6.0)
[2021-12-08 11:27] LABS: Parathyroid Hormone,Intact 80 pg/mL (19-88)
[2021-12-09 05:47] LABS: Vitamin D 25 Total 46.7 ng/mL (30-100)
== END 2021-12-07 13:31 | disposition home or self-care (01) ==
LOC: NCHCN 13:30
PROVIDERS: PCP Nurse Practitioner; Visit Provider Nurse Practitioner Family
DX: I10 Essential (primary) hypertension (principal); Z98.84 Bariatric surgery status; E03.9 Hypothyroidism, unspecified; R73.09 Other abnormal glucose; E66.9 Obesity, unspecified; E78.5 Hyperlipidemia, unspecified; M54.59 Other low back pain; N28.9 Disorder of kidney and ureter, unspecified
CPT/HCPCS: 80053; 80061; 82306; 82607; 82728; 82746; 83540; 83550; 83970; 84443; 84550; 85025

== ENCOUNTER 2022-06-15 15:50 | Outpatient (REF) | payer MEDICARE, MEDICAID, SELFPAY ==
[2022-06-15 18:59] LABS: Hemoglobin A1C 5.2 % (<5.7)
[2022-06-15 19:11] LABS: TSH (W/Ref FT4) 2.18 uIU/mL (0.36-3.74)
== END 2022-06-15 15:51 | disposition home or self-care (01) ==
LOC: NCHCN 15:50
PROVIDERS: PCP Nurse Practitioner; Visit Provider Nurse Practitioner Family
DX: I10 Essential (primary) hypertension (principal); E03.9 Hypothyroidism, unspecified; E78.5 Hyperlipidemia, unspecified; R73.03 Prediabetes; Z98.84 Bariatric surgery status
CPT/HCPCS: 83036; 84443

== ENCOUNTER 2022-12-27 16:57 | Outpatient (REF) | payer MEDICARE, SELFPAY ==
[2022-12-27 16:56] LABS: Abs Immature Grans 0.02 10^3/uL (0.0-0.06); Absolute Basophil Count 0.03 10^3/uL (0.0-0.2); Absolute Eosinophil Count 0.09 10^3/uL (0.0-0.7); Absolute Lymphocyte Count 1.33 10^3/uL (1.2-3.4); Absolute Monocyte Count 0.51 10^3/uL (0.1-0.8); Absolute Neutrophil Count 5.63 10^3/uL (1.2-6.7); Basophils % 0.4; Eosinophils % 1.2; HCT 38.3 % (36.0-46.0); HGB 12.7 g/dL (11.2-15.7); Immature Grans % 0.3; Lymphocytes % 17.5; MCH 29.6 pg (27.0-33.0); MCHC 33.2 % (32.0-36.0); MCV 89 fL (80-95); MPV 11.1 fL (8.0-11.0); Monocytes % 6.7; Neutrophils % 73.9; Platelet Count 240 10^3/uL (130-400); RBC 4.29 10^6/uL (3.93-5.22); RDW 13.1 % (11.7-14.6); RDW-SD 42.2 fL; WBC 7.61 10^3/uL (4.4-10.8)
[2022-12-27 17:16] LABS: Hemoglobin A1C 5.3 % (<5.7)
[2022-12-27 17:39] LABS: Iron 79 ug/dL (50-170); Total Iron Binding Capacity 396 ug/dL (250-450); Transferrin Sat 20 % (15-50)
[2022-12-27 18:02] LABS: Vitamin D 25 Total 23.9 ng/mL (30-100)
[2022-12-27 18:14] LABS: ALT 23 U/L (14-59); AST 19 U/L (15-37); Albumin 3.8 g/dL (3.4-5.0); Alkaline Phosphatase 89 U/L (46-116); Anion Gap 7.3 mmol/L (3-11); BUN 17 mg/dL (7-18); Bilirubin, Total 1.1 mg/dL (0.2-1.0); CO2 26.7 mmol/L (21.0-32.0); Calcium 9.1 mg/dL (8.5-10.1); Calculated LDL 66 mg/dL (<100); Chloride 108 mmol/L (98-107); Cholesterol 164 mg/dL (<200); Estimated GFR 64.09 (mL/min/1.73m2); Glucose 96 mg/dL (74-106); HDL Cholesterol 66 mg/dL (40-60); Potassium 4.4 mmol/L (3.5-5.1); Sodium 142 mmol/L (136-145); TSH (W/Ref FT4) 0.67 uIU/mL (0.36-3.74); Total Protein 6.9 g/dL (6.4-8.2); Triglyceride 161 mg/dL (<150); Vitamin B12 614 pg/mL (193-986)
[2022-12-27 18:26] LABS: Uric Acid 6.8 mg/dL (2.6-6.0)
== END 2022-12-27 16:58 | disposition home or self-care (01) ==
LOC: NCHCN 16:57
PROVIDERS: PCP Nurse Practitioner; Visit Provider Nurse Practitioner Family
DX: E03.9 Hypothyroidism, unspecified (principal); I10 Essential (primary) hypertension; N28.9 Disorder of kidney and ureter, unspecified; E78.5 Hyperlipidemia, unspecified; R79.89 Other specified abnormal findings of blood chemistry; E55.9 Vitamin D deficiency, unspecified; Z86.39 Personal history of other endocrine, nutritional and metabolic disease; Z98.84 Bariatric surgery status
CPT/HCPCS: 80053; 80061; 82306; 82607; 83036; 83540; 83550; 84443; 84550; 85025

== ENCOUNTER → 2023-01-10 01:05 | Outpatient (CLI) | payer MEDICARE, SELFPAY ==
--- NOTE | 2023-01-10 | DI.MAMMO_ITS ---
Exam(s) MAMMO SCREENING EXAM: MAMMO SCREENING CLINICAL HISTORY: SCREENING, Z12.39 TECHNIQUE: Bilateral full field digital CC and MLO mammographic images were obtained with 3D tomosyn thesis and utilizing computer aided detection (CAD). COMPARISON: Available for comparison. FINDINGS: Masses/Architectural Distortion: None seen. Microcalcifications: No suspicious pleomorphic-type are seen. Skin Thickening/Nipple Retraction: None. IMPRESSION: 1. No significant interval change with no specific features of malignancy noted. 2. Unless there is more urgent need, screening mammography is recommended, as per [employer] guidelines. BI-RADS Category 1 - Negative Breast Density - Category B - Scattered areas of fibroglandular density Breast density category C or D implies that the patient has dense breast tissue. Dense breast tissue is very common and is not abnormal but dense breast tissue can make it harder to find cancer on a ma mmogram. Also, dense breast tissue may increase their breast cancer risk. This information about the result of the mammogram report was provided to the patient to raise their awareness. Use this report when you speak with the patient about their risks for breast cancer, which includes their family hist ory. At that time, you may recommend for more screening tests (Ultrasound or MRI) as they might be us eful based on their risk. A negative radiographic report should not delay biopsy if a dominant or clinically suspicious mass is present. Up to ten percent of cancers are not identified on mammography. A negative report may reinforce clinical impression. Adenosis and dense breasts may obscure an underlying neoplasm. False positive reports average 6 to 10%. Patient will receive a letter notifying them of these results.
== END ==
PROVIDERS: PCP Nurse Practitioner; Visit Provider Nurse Practitioner Family
DX: Z12.31 Encounter for screening mammogram for malignant neoplasm of breast (principal)
CPT/HCPCS: 77063; 77067

== ENCOUNTER 2023-01-10 13:48 | Outpatient (REF) | payer MEDICARE, SELFPAY ==
--- NOTE | 2023-01-10 13:40 | PAPFT_PTH ---
PATIENT: Karen Fonseca LOC: [facility] U#:[id number] AGE/SX: 62/F ROOM: RE01/10/[address]: Shila Henderson DO : 1960 BED: DIS: 01/10/2023 SPEC #: [id number] RECD: 01/10/23 17:23 STATUS: GEMMAAra REQ #: [id number] CHELSY: 01/10/23 13:[address]: Shila Henderson DEPT: [facility] Cytology RECD BY: Clau Silva ENTERED: 01/10/23 17:24 SP TYPE: PAPFT OTHR DR: Osiris Mckeon Tissues: 1 - CX/ENDOCX FOR PAP SMEARS Procedures: PAP THIN PREP/UVM Screening HPV DNA PROBE Comments: [id number]
== END 2023-01-10 13:49 | disposition home or self-care (01) ==
LOC: LBN 13:48
PROVIDERS: PCP Nurse Practitioner; Visit Provider Obstetrics & Gynecology
DX: Z11.51 Encounter for screening for human papillomavirus (HPV); Z01.419 Encounter for gynecological examination (general) (routine) without abnormal findings
CPT/HCPCS: 88142; 87624

== ENCOUNTER 2023-12-12 13:41 | Outpatient (REF) | payer MEDICARE, SELFPAY ==
[2023-12-12 20:22] LABS: HCT 39.2 % (36.0-46.0); HGB 12.9 g/dL (11.2-15.7); MCH 30.1 pg (27.0-33.0); MCHC 32.9 % (32.0-36.0); MCV 92 fL (80-95); Platelet Count 228 10^3/uL (130-400); RBC 4.28 10^6/uL (3.93-5.22); RDW 12.9 % (11.7-14.6); RDW-SD 42.7 fL
[2023-12-12 20:52] LABS: Hemoglobin A1C 5.3 % (<5.7)
[2023-12-12 21:01] LABS: ALT 24 U/L (14-59); AST 27 U/L (15-37); Albumin 3.9 g/dL (3.4-5.0); Alkaline Phosphatase 89 U/L (46-116); Anion Gap 5.8 mmol/L (3-11); BUN 20 mg/dL (7-18); Bilirubin, Total 1.31 mg/dL (0.2-1.0); CO2 29.2 mmol/L (21.0-32.0); Calcium 9.2 mg/dL (8.5-10.1); Chloride 107 mmol/L (98-107); Glucose 90 mg/dL (74-106); Potassium 4.4 mmol/L (3.5-5.1); Sodium 142 mmol/L (136-145); TSH (W/Ref FT4) 0.14 uIU/mL (0.36-3.74); Total Protein 7.3 g/dL (6.4-8.2); Vitamin B12 730 pg/mL (193-986)
[2023-12-12 21:18] LABS: Uric Acid 8.3 mg/dL (2.6-6.0)
[2023-12-13 08:18] LABS: Iron 106 ug/dL (50-170); Total Iron Binding Capacity 439 ug/dL (250-450); Transferrin Sat 24 % (15-50)
[2023-12-13 08:18] LABS: Ferritin 46 ng/mL (8-252); Vitamin D 25 Total 52.8 ng/mL (30-100)
== END 2023-12-12 13:42 | disposition home or self-care (01) ==
LOC: NCHCN 13:41
PROVIDERS: PCP Nurse Practitioner Family; Visit Provider Nurse Practitioner Family
DX: R73.03 Prediabetes (principal); E03.9 Hypothyroidism, unspecified; Z98.84 Bariatric surgery status
CPT/HCPCS: 80053; 82306; 85027; 82607; 82728; 83036; 83540; 83550; 84439; 84443; 84550

== ENCOUNTER 2024-01-16 11:30 | Outpatient (REF) | payer MEDICARE, SELFPAY ==
--- NOTE | 2024-01-16 09:50 | PAPFT_PTH ---
PATIENT: Karen Fonseca LOC: [facility] U#:[id number] AGE/SX: 63/F ROOM: RE01/16/[address]: Shila Henderson DO : 1960 BED: DIS: 01/16/2024 SPEC #: [id number] RECD: 01/16/24 13:17 STATUS: JOANIE REQ #: [id number] CHELSY: 01/16/24 09:[address]: Shila Henderson DEPT: [facility] Cytology RECD BY: Clau Silva ENTERED: 01/16/24 13:17 SP TYPE: PAPFT OTHR DR: CHRISTINA ARIZA NP Tissues: 1 - CX/ENDOCX FOR PAP SMEARS Procedures: PAP THIN PREP/UVM Screening HPV DNA PROBE Comments: [id number] (HPV 16 & 18/45)
== END 2024-01-16 11:31 | disposition home or self-care (01) ==
LOC: LBN 11:30
PROVIDERS: PCP Nurse Practitioner Family; Visit Provider Obstetrics & Gynecology
DX: Z12.4 Encounter for screening for malignant neoplasm of cervix (principal); Z12.39 Encounter for other screening for malignant neoplasm of breast; R87.810 Cervical high risk human papillomavirus (HPV) DNA test positive; I10 Essential (primary) hypertension
CPT/HCPCS: 88142; 87624

== ENCOUNTER 2024-01-19 00:44 | Outpatient (CLI) | payer MEDICARE, SELFPAY ==
--- NOTE | 2024-01-19 09:28 | DI.MAMMO_ITS ---
Exam(s) MAMMO SCREENING EXAM: MAMMO SCREENING CLINICAL HISTORY: screening TECHNIQUE: Bilateral full field digital CC and MLO mammographic images were obtained with 3D tomosyn thesis and utilizing computer aided detection (CAD). COMPARISON: Available for comparison. FINDINGS: Masses/Architectural Distortion: None seen. Microcalcifications: No suspicious pleomorphic-type are seen. Skin Thickening/Nipple Retraction: None. IMPRESSION: 1. No significant interval change with no specific features of malignancy noted. 2. Unless there is more urgent need, screening mammography is recommended, as per [employer] guidelines. BI-RADS Category 1 - Negative Breast Density - Category B - Scattered areas of fibroglandular density Breast density category C or D implies that the patient has dense breast tissue. Dense breast tissue is very common and is not abnormal but dense breast tissue can make it harder to find cancer on a ma mmogram. Also, dense breast tissue may increase their breast cancer risk. This information about the result of the mammogram report was provided to the patient to raise their awareness. Use this report when you speak with the patient about their risks for breast cancer, which includes their family hist ory. At that time, you may recommend for more screening tests (Ultrasound or MRI) as they might be us eful based on their risk. A negative radiographic report should not delay biopsy if a dominant or clinically suspicious mass is present. Up to ten percent of cancers are not identified on mammography. A negative report may reinforce clinical impression. Adenosis and dense breasts may obscure an underlying neoplasm. False positive reports average 6 to 10%. Patient will receive a letter notifying them of these results.
== END 2024-01-19 01:04 ==
LOC: DI 00:45
PROVIDERS: PCP Nurse Practitioner Family; Visit Provider Obstetrics & Gynecology
DX: Z12.31 Encounter for screening mammogram for malignant neoplasm of breast (principal); R92.323 Mammographic fibroglandular density, bilateral breasts
CPT/HCPCS: 77063; 77067

== ENCOUNTER 2024-04-02 12:04 | Outpatient (REF) | payer MEDICARE, MEDICAID, SELFPAY ==
[2024-04-02 16:35] LABS: Hemoglobin A1C 5.3 % (<5.7)
[2024-04-02 16:40] LABS: Anion Gap 6.3 mmol/L (3-11); BUN 18 mg/dL (7-18); CO2 30.7 mmol/L (21.0-32.0); Calcium 9.1 mg/dL (8.5-10.1); Chloride 108 mmol/L (98-107); Glucose 93 mg/dL (74-106); Potassium 4.5 mmol/L (3.5-5.1); Sodium 145 mmol/L (136-145); TSH (W/Ref FT4) 0.19 uIU/mL (0.36-3.74)
[2024-04-02 23:26] LABS: Hepatitis C Ab w Rflx HCV PCR Negative (Negative)
== END 2024-04-02 12:05 | disposition home or self-care (01) ==
LOC: NCHCN 12:04
PROVIDERS: PCP Nurse Practitioner Family; Visit Provider Nurse Practitioner Family
DX: R73.03 Prediabetes (principal); E03.9 Hypothyroidism, unspecified
CPT/HCPCS: 80048; 86803; 83036; 84439; 84443

== ENCOUNTER 2024-07-08 15:34 | Outpatient (REF) | payer MEDICARE, MEDICAID, SELFPAY ==
[2024-07-08 16:17] LABS: TSH (W/Ref FT4) 0.21 uIU/mL (0.36-3.74)
== END 2024-07-08 15:35 | disposition home or self-care (01) ==
LOC: NCHCN 15:34
PROVIDERS: PCP Nurse Practitioner Family; Visit Provider Nurse Practitioner Family
DX: E03.9 Hypothyroidism, unspecified (principal)
CPT/HCPCS: 84439; 84443

== ENCOUNTER → 2025-02-05 01:49 | Outpatient (CLI) | payer MEDICARE, MEDICAID, SELFPAY ==
--- NOTE | 2025-02-05 05:00 | DI.MAMMO_ITS ---
Exam(s) MAMMO SCREENING EXAM: MAMMO SCREENING CLINICAL HISTORY: screening,z12.39 TECHNIQUE: Bilateral full field digital CC and MLO mammographic images were obtained with 3D tomosynthesis and utilizing computer aided detection (CAD). COMPARISON: Comparison is made with prior examinations. FINDINGS: Masses/Architectural Distortion: No suspicious masses or areas of architectural distortion are present. Microcalcifications: No suspicious pleomorphic-type are seen. Skin Thickening/Nipple Retraction: None. IMPRESSION: 1. No significant interval change with no specific features of malignancy noted. 2. Unless there is more urgent need, screening mammography is recommended, as per [employer] guidelines. BI-RADS Category 1 - Negative Breast Density - Category B - There are scattered areas of fibroglandular density. Breast density Category C or D implies that the patient has dense breast tissue. Dense breast tissue can make it harder to find cancer on a mammogram. Dense breast tissue is also associated with an increased risk of breast cancer. This information about the result of the mammogram report was provided to the patient to raise their awareness. Use this report when you speak with the patient about their risks for breast cancer, which includes their family history. At that time, you may recommend additional screening tests (Ultrasound or MRI) as these tests may add significant information. A negative radiographic report should not delay biopsy if a dominant or clinically suspicious mass is present. Up to ten percent of cancers are not identified on mammography. A negative report may reinforce clinical impression. Adenosis and dense breasts may obscure an underlying neoplasm. False positive reports average 6 to 10%. Patient will receive a letter notifying them of these results.
== END ==
PROVIDERS: PCP Nurse Practitioner Family; Visit Provider Obstetrics & Gynecology
DX: Z12.31 Encounter for screening mammogram for malignant neoplasm of breast (principal)
CPT/HCPCS: 77063; 77067

== ENCOUNTER 2025-02-26 10:53 | Outpatient (REF) | payer MEDICARE, MEDICAID, SELFPAY ==
[2025-02-26 16:42] LABS: Hemoglobin A1C 5.2 % (<5.7)
[2025-02-26 16:45] LABS: TSH (W/Ref FT4) 0.28 uIU/mL (0.55-4.78)
[2025-02-26 17:13] LABS: ALT 28 U/L (10-49); AST 29 U/L (<34); Albumin 4.4 g/dL (3.2-5.0); Alkaline Phosphatase 77 U/L (46-116); Anion Gap 8 mmol/L (3-11); BUN 20 mg/dL (9-23); Bilirubin, Total 1.0 mg/dL (0.2-1.2); CO2 26.0 mmol/L (20.0-31.0); Calcium 9.2 mg/dL (8.3-10.6); Chloride 111 mmol/L (98-107); Cholesterol 158 mg/dL (<200); Glucose 84 mg/dL (74-106); HDL Cholesterol 57 mg/dL (>or=50); Potassium 4.7 mmol/L (3.5-5.1); Sodium 145 mmol/L (136-145); Total Protein 6.9 g/dL (5.7-8.2); Uric Acid 8.0 mg/dL (3.1-7.8)
== END 2025-02-26 10:54 | disposition home or self-care (01) ==
LOC: NCHCN 10:53
PROVIDERS: PCP Nurse Practitioner Family; Visit Provider Nurse Practitioner Family
DX: R73.03 Prediabetes (principal); E78.5 Hyperlipidemia, unspecified; K75.81 Nonalcoholic steatohepatitis (NASH); M1A.9XX0 Chronic gout, unspecified, without tophus (tophi)
CPT/HCPCS: 80053; 80061; 83036; 84439; 84443; 84550